=== PATIENT | male | born 1950 | race Caucasian/White ===

== ENCOUNTER 2020-02-16 11:31 | Inpatient (IN) | payer MEDICARE ==
[~2020-02-16] VITALS: Ht 175.3 cm; Wt 93.2 kg
--- NOTE | 2020-02-16 12:00 | NUR ---
ADMISSION pt admitted by ambulance to room 314 from [facility] with sepsis and cellulitis left lower extremity,pt states he was fishing at a tournament yesterday liliam 1pm when he felt something puncture his left lower extremity [place] area while wading in the water had protective gear in place on legs wound present 3cmx4 cm pictures taken for medical record
[2020-02-16] MEDS ORDERED: SODIUM CHLORIDE 0.9% 1000ML 1,000 ML IV SCH (12:37)
[2020-02-16] MEDS ORDERED: ONDANSETRON HCL 4 MG/2 ML VIAL IV PRN (12:45)
[2020-02-16] MEDS ORDERED: LACTULOSE 20 GM/30 ML UDCUP PO PRN (12:45)
[2020-02-16] MEDS ORDERED: HYDROCODONE/ACETAMINOPHEN 5/325 MG TAB PO PRN (12:45)
[2020-02-16] MEDS ORDERED: NITROGLYCERIN 0.4 MG SL TAB SL PRN (12:45)
[2020-02-16 12:57] VITALS: BP 137/87
[2020-02-16] MEDS ORDERED: PHARMACY COMMUNICATION MISC SCH (13:00)
[2020-02-16] MEDS ORDERED: SODIUM CHLORIDE 0.9% 1000ML 1,000 ML IV ONE (13:19)
[2020-02-16] MEDS ORDERED: VANCOMYCIN 1GM+NS 250ML 250 ML IV ONE (13:19)
[2020-02-16] MEDS ORDERED: VANCOMYCIN 1GM+NS 250ML 250 ML IV SCH (13:30)
[2020-02-16] MEDS ORDERED: VANCOMYCIN PROTOCOL PER PHARMACY IV SCH (13:45)
[2020-02-16 13:58] LABS: BASOPHILS % (AUTO) 0.3 % (0.0-5.0); EOSINOPHILS % (AUTO) 0.2 % (0.0-8.0); HEMATOCRIT 37.3 % (42-54); LYMPHOCYTES % (AUTO) 13.2 % (21.0-51.0); MEAN CORPUSCULAR HEMOGLOBIN 32.3 pg (27.0-33.0); MEAN CORPUSCULAR HGB CONC 34.6 g/dL (32.0-36.0); MEAN CORPUSCULAR VOLUME 93.5 fL (79-99); MONOCYTES % (AUTO) 6.9 % (3.0-13.0); NEUTROPHILS % (AUTO) 78.7 % (40.0-77.0); PLATELET COUNT (AUTO) 107 K/uL (130-400); RED BLOOD CELL COUNT(AUTO) 3.99 MIL/uL (4.50-6.20); RED CELL DISTRIBUTION WIDTH 12.5 % (11.0-15.5); WHITE BLOOD COUNT (AUTO) 22.9 K/uL (4.8-10.8)
[2020-02-16 14:20] LABS: ALBUMIN 3.2 g/dL (3.5-5.0); BILIRUBIN,TOTAL 0.7 mg/dL (0.2-1.0); CREATININE 1.1 mg/dL (0.5-1.5); CRP QUANTITATIVE 169.2 mg/L (0.00-9.0); POTASSIUM 3.7 mmol/L (3.5-5.1); TOTAL PROTEIN, SERUM 6.4 g/dL (6.0-8.3)
[2020-02-16 15:02] LABS: ERYTHROCYTE SEDIMENTATION RATE 25 MM/HR (0-20)
[2020-02-16] MEDS: HEPARIN SODIUM 5000UNIT/ML 1ML VIAL SQ SCH ×2 (16:18→20:44)
[2020-02-16 16:21] VITALS: BP 123/76
[2020-02-16] MEDS: ZOSYN 3.375GM+NS 50ML 50 ML IV SCH ×2 (16:21→20:40)
[2020-02-16] MEDS: INSULIN HUMULIN R 100 UNIT/ML 3ML SQ SCH ×2 (16:30→20:45)
[2020-02-16] MEDS ORDERED: ROSU10TA28 PO (19:31)
[2020-02-16] MEDS ORDERED: METO-391 PO (19:32)
[2020-02-16] MEDS ORDERED: LISI-613 PO (19:32)
[2020-02-16] MEDS ORDERED: METF-446 PO (19:33)
[2020-02-16] MEDS ORDERED: FOLI0.8T PO (19:34)
[2020-02-16] MEDS ORDERED: ASCO500C18 PO (19:35)
[2020-02-16] MEDS ORDERED: [UNRECOGNIZED DRUG - CODE] PO (19:36)
[2020-02-16] MEDS ORDERED: MULT1CAP32 PO (19:38)
[2020-02-16] MEDS ORDERED: VITA400C19 PO (19:40)
[2020-02-16] MEDS ORDERED: INSNOV IVP (19:42)
[2020-02-16] MEDS ORDERED: INSU300I SQ (19:45)
[2020-02-16 20:36] VITALS: BP 148/99
[2020-02-16] MEDS: VANCOMYCIN 1GM+NS 250ML 250 ML IV SCH (20:41)
[2020-02-16] MEDS: MORPHINE SULFATE 4 MG/1ML SYG IV PRN (20:46)
[2020-02-16] MEDS: INSULIN GLARGINE 100 UNITS/ML 10 ML VIAL SQ SCH (20:46)
[2020-02-16 23:26] VITALS: BP 120/69
[2020-02-17 04:05] VITALS: BP 133/77
[2020-02-17] MEDS: ZOSYN 3.375GM+NS 50ML 50 ML IV SCH ×3 (04:53→21:31)
[2020-02-17] MEDS: MORPHINE SULFATE 4 MG/1ML SYG IV PRN (04:54)
[2020-02-17] MEDS: INSULIN HUMULIN R 100 UNIT/ML 3ML SQ SCH ×4 (06:17→21:34)
--- NOTE | 2020-02-17 06:35 | NUR ---
received report from am nurse, assumed care, shift assessment done, head to toe assessment done, 24 cc done, safety maintained, bed in lowest position, pt had a bm, wear own cpap at night, fs is 91 no coverage. will continue to monitor.
[2020-02-17 09:10] LABS: MEAN CORPUSCULAR VOLUME 93.8 fL (79-99); RED BLOOD CELL COUNT(AUTO) 4.16 MIL/uL (4.50-6.20)
[2020-02-17 09:11] LABS: BASOPHILS % (AUTO) 0.4 % (0.0-5.0); EOSINOPHILS % (AUTO) 0.1 % (0.0-8.0); LYMPHOCYTES % (AUTO) 8.3 % (21.0-51.0); MEAN CORPUSCULAR HEMOGLOBIN 32.2 pg (27.0-33.0); MEAN CORPUSCULAR HGB CONC 34.4 g/dL (32.0-36.0); MONOCYTES % (AUTO) 4.8 % (3.0-13.0); NEUTROPHILS % (AUTO) 84.8 % (40.0-77.0); PLATELET COUNT (AUTO) 104 K/uL (130-400); RED CELL DISTRIBUTION WIDTH 12.6 % (11.0-15.5)
[2020-02-17 09:43] LABS: CREATININE 1.1 mg/dL (0.5-1.5); POTASSIUM 3.6 mmol/L (3.5-5.1)
[2020-02-17 10:20] VITALS: BP 136/79
[2020-02-17] MEDS: VANCOMYCIN 1GM+NS 250ML 250 ML IV SCH ×2 (11:16→21:31)
[2020-02-17] MEDS: ATORVASTATIN CALCIUM 20 MG TABLET PO SCH (11:17)
[2020-02-17] MEDS: ASPIRIN 81MG TAB.CHEW PO SCH (11:17)
[2020-02-17] MEDS: METOPROLOL SUCCINATE 50 MG TAB.SR.24H PO SCH (11:18)
[2020-02-17] MEDS: LISINOPRIL 20 MG TABLET PO SCH (11:18)
[2020-02-17] MEDS: HEPARIN SODIUM 5000UNIT/ML 1ML VIAL SQ SCH ×3 (11:19→21:32)
[2020-02-17 11:59] VITALS: BP 141/83
--- NOTE | 2020-02-17 15:23 | NUR ---
CT LUMBAR SPINE pt to xray ia wheelchair
[2020-02-17 17:23] VITALS: BP 161/89
--- NOTE | 2020-02-17 19:35 | NUR ---
INITIAL SW spoke with patient. He lives with spouse in [place], [place] but came to [place] [employer]. Patient has no home services. DME: BPM, glucometer (uses insulin) CPAP. He is able to complete ADL's independently and drives. No local PCP. [facility] [place] but will [facility] [address] [place] [address] in [place] if needed. No safety concerns about returning home. DCP is home to [place]. Addendum: 02/17/20 at 1938 by LINDSAY PUENTE SS Amended: Links added.
--- NOTE | 2020-02-17 19:38 | NUR ---
EMERGENCY CONTACT SIMRAN DELANEY - [facility] -
[2020-02-17 20:03] VITALS: BP 137/74
[2020-02-17] MEDS: DOXYCYCLINE HYCLATE 100 MG TABLET PO SCH (21:31)
[2020-02-17] MEDS: INSULIN GLARGINE 100 UNITS/ML 10 ML VIAL SQ SCH (21:33)
[2020-02-17 23:57] VITALS: BP 121/74
[2020-02-18 04:00] VITALS: BP 128/72
[2020-02-18] MEDS: ZOSYN 3.375GM+NS 50ML 50 ML IV SCH ×3 (04:24→21:27)
[2020-02-18 05:00] LABS: BASOPHILS % (AUTO) 0.4 % (0.0-5.0); EOSINOPHILS % (AUTO) 1.2 % (0.0-8.0); HEMATOCRIT 34.9 % (42-54); LYMPHOCYTES % (AUTO) 24.2 % (21.0-51.0); MEAN CORPUSCULAR HEMOGLOBIN 31.7 pg (27.0-33.0); MEAN CORPUSCULAR HGB CONC 34.1 g/dL (32.0-36.0); MEAN CORPUSCULAR VOLUME 93.1 fL (79-99); MONOCYTES % (AUTO) 8.3 % (3.0-13.0); NEUTROPHILS % (AUTO) 65.1 % (40.0-77.0); PLATELET COUNT (AUTO) 93 K/uL (130-400); RED BLOOD CELL COUNT(AUTO) 3.75 MIL/uL (4.50-6.20); RED CELL DISTRIBUTION WIDTH 12.4 % (11.0-15.5); WHITE BLOOD COUNT (AUTO) 11.5 K/uL (4.8-10.8)
[2020-02-18 05:16] LABS: CREATININE 0.9 mg/dL (0.5-1.5); POTASSIUM 3.7 mmol/L (3.5-5.1)
[2020-02-18] MEDS: INSULIN HUMULIN R 100 UNIT/ML 3ML SQ SCH ×4 (06:24→21:29)
[2020-02-18 08:00] VITALS: BP 134/75
[2020-02-18] MEDS: VANCOMYCIN 1GM+NS 250ML 250 ML IV SCH ×2 (09:54→21:26)
[2020-02-18] MEDS: LISINOPRIL 20 MG TABLET PO SCH (09:55)
[2020-02-18] MEDS: ASPIRIN 81MG TAB.CHEW PO SCH (09:55)
[2020-02-18] MEDS: METOPROLOL SUCCINATE 50 MG TAB.SR.24H PO SCH (09:55)
[2020-02-18] MEDS: DOXYCYCLINE HYCLATE 100 MG TABLET PO SCH ×2 (09:55→21:26)
[2020-02-18] MEDS: ATORVASTATIN CALCIUM 20 MG TABLET PO SCH (09:55)
[2020-02-18 12:20] VITALS: BP 145/91
--- NOTE | 2020-02-18 12:30 | NUR ---
DR CARRENO culture of left lower extremity obtained and sent to lab debridement of wound at bedside using aseptic tech order given for medihoney to wound 4x4s and kerlix pt tolerated well pt states has no pain
[2020-02-18 17:13] VITALS: BP 133/71
[2020-02-18] MEDS ORDERED: TEMAZEPAM 15 MG CAPSULE PO PRN (17:45)
[2020-02-18 20:09] VITALS: BP 154/78
[2020-02-18] MEDS: INSULIN GLARGINE 100 UNITS/ML 10 ML VIAL SQ SCH (21:29)
[2020-02-18 23:46] VITALS: BP 126/75
[2020-02-19 03:31] VITALS: BP 138/86
[2020-02-19] MEDS: ZOSYN 3.375GM+NS 50ML 50 ML IV SCH ×2 (04:32→12:26)
[2020-02-19] MEDS: INSULIN HUMULIN R 100 UNIT/ML 3ML SQ SCH ×3 (05:28→16:30)
[2020-02-19 06:13] LABS: BASOPHILS % (AUTO) 0.5 % (0.0-5.0); EOSINOPHILS % (AUTO) 1.1 % (0.0-8.0); HEMATOCRIT 35.7 % (42-54); LYMPHOCYTES % (AUTO) 27.1 % (21.0-51.0); MEAN CORPUSCULAR HEMOGLOBIN 31.6 pg (27.0-33.0); MEAN CORPUSCULAR HGB CONC 34.2 g/dL (32.0-36.0); MEAN CORPUSCULAR VOLUME 92.5 fL (79-99); MONOCYTES % (AUTO) 9.1 % (3.0-13.0); NEUTROPHILS % (AUTO) 61.2 % (40.0-77.0); PLATELET COUNT (AUTO) 116 K/uL (130-400); RED BLOOD CELL COUNT(AUTO) 3.86 MIL/uL (4.50-6.20); RED CELL DISTRIBUTION WIDTH 12.2 % (11.0-15.5); WHITE BLOOD COUNT (AUTO) 9.9 K/uL (4.8-10.8)
[2020-02-19 06:30] LABS: POTASSIUM 3.8 mmol/L (3.5-5.1)
[2020-02-19] MEDS ORDERED: COMPOUND IV REFRIGERATED 1 EACH IVSOLN MISC PRN (06:30)
[2020-02-19 08:21] VITALS: BP 152/90
[2020-02-19] MEDS ORDERED: VANCOMYCIN 1.25 GM in SODIUM CHLORIDE 0.9% 250 ML IV SCH (09:00)
[2020-02-19] MEDS ORDERED: HONEY 1 APPL/ML TUBE TP SCH (09:00)
[2020-02-19] MEDS: ASPIRIN 81MG TAB.CHEW PO SCH (09:18)
[2020-02-19] MEDS: DOXYCYCLINE HYCLATE 100 MG TABLET PO SCH (09:19)
[2020-02-19] MEDS: METOPROLOL SUCCINATE 50 MG TAB.SR.24H PO SCH (09:19)
[2020-02-19] MEDS: LISINOPRIL 20 MG TABLET PO SCH (09:19)
[2020-02-19] MEDS: ATORVASTATIN CALCIUM 20 MG TABLET PO SCH (09:20)
[2020-02-19 15:20] VITALS: BP 166/87
[2020-02-19 15:21] VITALS: BP 114/54
== END 2020-02-19 17:30 | disposition home or self-care (01) | DRG 603 ==
LOC: OBSVTOIN 11:50 → 3CH 11:50
PROVIDERS: ADMIT Hospitalist; ATTEND Hospitalist
DX: L03.116 Cellulitis of left lower limb (principal); L02.416 Cutaneous abscess of left lower limb; E11.65 Type 2 diabetes mellitus with hyperglycemia; I10 Essential (primary) hypertension; I25.10 Atherosclerotic heart disease of native coronary artery without angina pectoris; E66.9 Obesity, unspecified; E78.5 Hyperlipidemia, unspecified; Z79.4 Long term (current) use of insulin; Z95.5 Presence of coronary angioplasty implant and graft; Z68.30 Body mass index [BMI] 30.0-30.9, adult; Z83.3 Family history of diabetes mellitus
CPT/HCPCS: 36415; 73700; 80048; 80053; 80202; 82948; 83605; 85025; 85651; 86140; 87070; 87076; 93971; G0378; J1644; J1815; J2270; J2543; J3370; J7030; J7050